=== PATIENT | male | born 2000 | race Caucasian/White ===

== ENCOUNTER 2024-05-20 09:32 | Outpatient (AMB) | payer OTHER, SELFPAY ==
--- NOTE | 2024-05-20 10:01 | A.OFFVIS_ITS ---
Intake Visit Reasons: balanitis Intake Note: New patient is present for balanitis Ongoing for 8 months Pain And Swelling Treated at [facility] but persistent despite 2x Fluconazole and Topicals Treated with Clotrimazole, Cortisone, Family History of Prostate Cancer, patient's Grandfather Uptwist Spinner Required: No Accompanied by: Self / Same As Patient Allergies No Known Allergies Allergy (Verified 05/20/24 10:13) HPI Comments Details: Rodrigo is a pleasant male. He is a patient of . He is seen for the following urologic conditions - balanitis/urethritis Balanitis/urethritis Had fungal exposure through sexual partner proximally 8 months ago Treated with topical clotrimazole which failed to clear Has had recurrence centered around the urethral meatal tip Was given short course of fluconazole which appeared to be beneficial Rodrigo showed me a number photos of the recurrence On examination today penile glans has keratinized squamous epithelium. This is atypical for a glans that would normally be covered by a foreskin. Recommendation to use neutral moisturizer twice a day Will try 2 week course of fluconazole 150 mg daily 6 week follow-up tele [facility] Medical History (Updated 05/20/24 @ 10:44 by Ren Lopez MD) Balanitis Family History Paternal Grandfather Prostate cancer Review of Systems Const Denies chills and Denies fever(s) Card Reports no additional complaints and Denies syncope Resp Denies cough GI Denies abdominal pain and Denies heartburn Reports as per HPI and Denies change in libido Neuro Denies syncope Psych Denies change in libido Endo Denies change in libido Physical Exam Const General: cooperative, healthy appearing, comfortable and no acute distress Orientation/consciousness: patient oriented x3 HEENT Face and sinus: Yes normal facial exam Mouth: moist mucous membranes Neck Neck: Yes normal visual inspection, Yes full ROM and Yes trachea midline Chest Chest palpation & inspection: normal inspection of the chest Resp Effort & Inspection: normal respiratory effort, able to speak in complete sentences and no respiratory distress GI Inspection: Yes normal to inspection Back/Spine/Pelvis Cervical Spine: normal cervical lordosis Thoracic/Lumbar Spine: thoracic and lumbar spine normal to inspection Skin General skin exam: no rashes or lesions noted Neuro General: patient oriented x3, gait normal, tone normal and moves all extremities Extrem General: Yes normal to inspection and Yes capillary refill normal Assessment & Plan Assessment & Plan (1) Urethritis, nongonococcal: Code(s): N34.1 - Nonspecific urethritis Category: Medical (2) Balanitis: Code(s): N48.1 - Balanitis Category: Medical Plan Trial fluconazole 150 mg daily 14 days Six week follow-up Medications: New fluconazole 150 mg PO DAILY 14 tabs 0RF 14 days B49 - Unspecified mycosis, N34.1 - Nonspecific urethritis Patient Instructions: Imaging studies, laboratory and physical exam results were discussed and reviewed in detail. No major barriers to patient understanding were identified. An opportunity to ask questions regarding the treatment plan was provided. All questions were answered. The patient expressed understanding and agreement with the above treatment plan. The patient is aware they should contact our office by phone for worsening of their current condition or the appearance of new urologic symptoms. Compliance is encouraged with any medications and followup testing that is ordered. It is a privilege to participate in the urologic care of your patient. If you have any questions or concerns regarding treatment for the above conditions, or other urologic issues, please do not hesitate to contact me. The office telephone contact is [phone]. This note is constructed using voice recognition software. While every effort has been made to ensure accuracy specialty manufacturing supervisor errors may have been included. Yours sincerely, Dr Ren Lopez MD, [facility] - Urology Providers of Expert, Compassionate Care for the Genitourinary System Coding Level of Care Code New Pt Level 4 (78970) Diagnoses Urethritis, nongonococcal N34.1 Balanitis N48.1
== END 2024-05-20 10:49 | disposition home or self-care (01) ==
PROVIDERS: PCP Internal Medicine; Visit Provider Urology
DX: N34.1 Nonspecific urethritis (principal); N48.1 Balanitis
CPT/HCPCS: 99204

== ENCOUNTER → 2024-05-20 09:32 | Outpatient (BNVA) | payer OTHER, SELFPAY | PROVIDERS: PCP Internal Medicine; Visit Provider Urology ==

== ENCOUNTER 2024-07-02 11:29 | Outpatient (AMB) | payer OTHER, SELFPAY ==
--- NOTE | 2024-07-02 11:32 | MHC.OFFVIS ---
Intake Visit Reasons: 6 week follow up Intake Note: Patient is present for 6W F/U Urology Medication:NONE Antibiotic Allergy:NONE Blood Thinner:NONE Rug Backing Stenciler Required: No Allergies No Known Allergies Allergy (Verified 07/02/24 11:32) HPI Comments Details: Rodrigo is a pleasant male. He is a patient of . He is seen for the following urologic conditions - balanitis/urethritis Telemedicine Evaluation 15 min Consultation [employer] Marginal benefit from 2 weeks of fluconazole Saw a enamel cracker who suggested may have been bacterial because fungus should have improved with 2 weeks ketoconazole Recommendation Microgen prostate testing Does have some components that are suggestive of emerging chronic pelvic pain syndrome Balanitis/urethritis Had fungal exposure through sexual partner proximally 8 months ago Treated with topical clotrimazole which failed to clear Has had recurrence centered around the urethral meatal tip Was given short course of fluconazole which appeared to be beneficial Rodrigo showed me a number photos of the recurrence On examination today penile glans has keratinized squamous epithelium. This is atypical for a glans that would normally be covered by a foreskin. Recommendation to use neutral moisturizer twice a day [facility] Medical History (Updated 05/20/24 @ 10:44 by Ren Lopez MD) Balanitis Family History Paternal Grandfather Prostate cancer Review of Systems Const All systems reviewed & are unremarkable except as noted in HPI and below Reports no additional complaints Resp Reports no additional complaints GI Reports no additional complaints Reports as per HPI Musc Reports no additional complaints Physical Exam Telemedicine evaluation Appropriate responses Regular breathing rate and rhythm HEENT Head: Yes normal to inspection Ears: hearing grossly normal bilaterally Eyes General: appearance normal, both eyes and all related structures Neck Neck: Yes normal visual inspection Chest Chest palpation & inspection: normal inspection of the chest Resp Effort & Inspection: normal respiratory effort and able to speak in complete sentences Telehealth Telehealth Location of provider rendering services: practice address Location of patient: address on file Patient Identification confirmed using: Name, : Yes Telehealth method: voice only Patient verbally consented to treatment: Yes Patient verbally consented to billing insurance company: Yes Patient informed of any privacy concerns related to visit: Yes Assessment & Plan Assessment & Plan (1) Urethritis, nongonococcal: Code(s): N34.1 - Nonspecific urethritis Category: Medical (2) Balanitis: Code(s): N48.1 - Balanitis Category: Medical Plan Plan Microgen prostate Symptomatic urinary tract infection presentations to a urologic clinic practice are overwhelmingly higher risk and more complicated genitourinary cases. Multiplex nucleic acid amplification using next generation rapid sequence polymerase chain reaction (PCR) has high sensitivity and diagnostic accuracy. It allows the ability to detect polymicrobial infections, isolate fastidious organisms, and detect Yomi resistance patterns. This allows greater antibiotic stewardship. Using PCR based technology is medically necessary in cases of nondiagnostic, persistent symptoms of urinary tract infection despite therapy. It is applicable in settings of complex urologic surgery, complex structural genitourinary anatomy and patients with prior history of recurrent complicated UTIs. Patient Instructions: Imaging studies, laboratory and physical exam results were discussed and reviewed in detail. No major barriers to patient understanding were identified. An opportunity to ask questions regarding the treatment plan was provided. All questions were answered. The patient expressed understanding and agreement with the above treatment plan. The patient is aware they should contact our office by phone for worsening of their current condition or the appearance of new urologic symptoms. Compliance is encouraged with any medications and followup testing that is ordered. It is a privilege to participate in the urologic care of your patient. If you have any questions or concerns regarding treatment for the above conditions, or other urologic issues, please do not hesitate to contact me. The office telephone contact is [phone]. This note is constructed using voice recognition software. While every effort has been made to ensure accuracy welding machine operator arc errors may have been included. Yours sincerely, Dr Ren Lopez MD, [facility] - Urology Providers of Expert, Compassionate Care for the Genitourinary System Coding Level of Care Code Tele Est Pt Level 3 (04148) Diagnoses Urethritis, nongonococcal N34.1 Balanitis N48.1
== END 2024-07-02 12:39 | disposition home or self-care (01) ==
LOC: HO.HUSH 11:29
PROVIDERS: PCP Internal Medicine; Visit Provider Urology
DX: N34.1 Nonspecific urethritis (principal); N48.1 Balanitis
CPT/HCPCS: 99213

== ENCOUNTER 2024-07-16 10:05 | Outpatient (AMB) | payer OTHER, SELFPAY ==
--- NOTE | 2024-07-16 10:54 | A.OFFVIS_ITS ---
Intake Visit Reasons: prostatic massage/ microgen Intake Note: Patient is present for PROSTATIC MASSAGE/MICROGEN Urology Medication:NONE Antibiotic Allergy:NONE Blood Thinner:NONE Rotary Lithographic Press Operator Required: No Allergies No Known Allergies Allergy (Verified 07/16/24 10:57) HPI Comments Details: Rodrigo is a pleasant male. He is a patient of . He is seen for the following urologic conditions - balanitis/urethritis Persistent symptoms with component prostatitis Here for Microgen completion Prostatic massage performed and fluid obtained Seven day follow-up tele for prostate DNA analysis Does have some components that are suggestive of emerging chronic pelvic pain syndrome Balanitis/urethritis Had fungal exposure through sexual partner proximally 8 months ago Treated with topical clotrimazole which failed to clear Has had recurrence centered around the urethral meatal tip Was given short course of fluconazole which appeared to be beneficial Rodrigo showed me a number photos of the recurrence On examination today penile glans has keratinized squamous epithelium. This is atypical for a glans that would normally be covered by a foreskin. Recommendation to use neutral moisturizer twice a day [facility] Medical History (Updated 07/16/24 @ 17:23 by Ren Lopez MD) Balanitis Family History Paternal Grandfather Prostate cancer Review of Systems Const Denies chills and Denies fever(s) Card Reports no additional complaints and Denies syncope Resp Denies cough GI Denies abdominal pain and Denies heartburn Reports as per HPI and Denies change in libido Neuro Denies syncope Psych Denies change in libido Endo Denies change in libido Physical Exam Const General: cooperative, healthy appearing, comfortable and no acute distress Orientation/consciousness: patient oriented x3 HEENT Face and sinus: Yes normal facial exam Mouth: moist mucous membranes Neck Neck: Yes normal visual inspection, Yes full ROM and Yes trachea midline Chest Chest palpation & inspection: normal inspection of the chest Resp Effort & Inspection: normal respiratory effort, able to speak in complete sentences and no respiratory distress GI Inspection: Yes normal to inspection Rectal Exam - Male: Yes normal sphincter tone and Yes prostate normal Male General Exam: Yes normal external exam Penis: normal penis and circumcised Meatus: meatus normal Scrotum: scrotum normal Testes: Testes normal Back/Spine/Pelvis Cervical Spine: normal cervical lordosis Thoracic/Lumbar Spine: thoracic and lumbar spine normal to inspection Skin General skin exam: no rashes or lesions noted Neuro General: patient oriented x3, gait normal, tone normal and moves all extremities Extrem General: Yes normal to inspection and Yes capillary refill normal Assessment & Plan Assessment & Plan (1) Prostatitis: Code(s): N41.9 - Inflammatory disease of prostate, unspecified Category: Medical Plan Seven day follow-up tele Patient Instructions: Imaging studies, laboratory and physical exam results were discussed and reviewed in detail. No major barriers to patient understanding were identified. An opportunity to ask questions regarding the treatment plan was provided. All questions were answered. The patient expressed understanding and agreement with the above treatment plan. The patient is aware they should contact our office by phone for worsening of their current condition or the appearance of new urologic symptoms. Compliance is encouraged with any medications and followup testing that is ordered. It is a privilege to participate in the urologic care of your patient. If you have any questions or concerns regarding treatment for the above conditions, or other urologic issues, please do not hesitate to contact me. The office telephon e contact is [phone]. This note is constructed using voice recognition software. While every effort has been made to ensure accuracy composite bond technician errors may have been included. Yours sincerely, Dr Ren Lopez MD, [facility] - Urology Providers of Expert, Compassionate Care for the Genitourinary System Coding Level of Care Code Est Pt Level 3 (69348) Diagnoses Prostatitis N41.9
== END 2024-07-16 11:28 | disposition home or self-care (01) ==
PROVIDERS: PCP Internal Medicine; Visit Provider Urology
DX: N41.9 Inflammatory disease of prostate, unspecified (principal)
CPT/HCPCS: 99213

== ENCOUNTER → 2024-07-16 10:05 | Outpatient (BNVA) | payer OTHER, SELFPAY | PROVIDERS: PCP Internal Medicine; Visit Provider Urology ==

== ENCOUNTER 2024-07-24 09:09 | Outpatient (AMB) | payer OTHER, SELFPAY ==
--- NOTE | 2024-07-24 09:15 | MHC.OFFVIS ---
Intake Visit Reasons: 1W Follow Up(fluconazole Trial) Intake Note: Patient is present for 1W F/U Urology Medication:CLINDAMYCIN,DOXYCYCLINE,FLUCONAZOLE Antibiotic Allergy:NONE Blood Thinner:NONE Crime Laboratory Analyst Required: No Allergies No Known Allergies Allergy (Verified 07/24/24 09:16) HPI Comments Details: Rodrigo is a pleasant male. He is a patient of . He is seen for the following urologic conditions - balanitis/urethritis Telemedicine Evaluation 15 min Consultation [employer] Video Copy of Kike sent Discussed components Primarily ureaplasma Treat with combination antibiotics clindamycin and doxycycline Balanitis/urethritis Had fungal exposure through sexual partner proximally 8 months ago Treated with topical clotrimazole which failed to clear Has had recurrence centered around the urethral meatal tip Was given short course of fluconazole which appeared to be beneficial Rodrigo showed me a number photos of the recurrence On examination today penile glans has keratinized squamous epithelium. This is atypical for a glans that would normally be covered by a foreskin. Recommendation to use neutral moisturizer twice a day [facility] Medical History (Updated 07/16/24 @ 17:23 by Ren Lopez MD) Balanitis Family History Paternal Grandfather Prostate cancer Review of Systems Const All systems reviewed & are unremarkable except as noted in HPI and below Reports no additional complaints Resp Reports no additional complaints GI Reports no additional complaints Reports as per HPI Musc Reports no additional complaints Physical Exam Telemedicine evaluation Appropriate responses Regular breathing rate and rhythm HEENT Head: Yes normal to inspection Ears: hearing grossly normal bilaterally Eyes General: appearance normal, both eyes and all related structures Neck Neck: Yes normal visual inspection Chest Chest palpation & inspection: normal inspection of the chest Resp Effort & Inspection: normal respiratory effort and able to speak in complete sentences Telehealth Telehealth Telehealth Platform: [employer] Location of provider rendering services: practice address Location of patient: address on file Patient Identification confirmed using: Name, : Yes Telehealth method: video Patient verbally consented to treatment: Yes Patient verbally consented to billing insurance company: Yes Patient informed of any privacy concerns related to visit: Yes Minutes spent on Phone/Video with Pt.: 15 Assessment & Plan Assessment & Plan (1) Urethritis, nongonococcal: Code(s): N34.1 - Nonspecific urethritis Category: Medical (2) Prostatitis: Code(s): N41.9 - Inflammatory disease of prostate, unspecified Category: Medical Plan Treat with joint antibiotics Four week follow-up tele Patient Instructions: Imaging studies, laboratory and physical exam results were discussed and reviewed in detail. No major barriers to patient understanding were identified. An opportunity to ask questions regarding the treatment plan was provided. All questions were answered. The patient expressed understanding and agreement with the above treatment plan. The patient is aware they should contact our office by phone for worsening of their current condition or the appearance of new urologic symptoms. Compliance is encouraged with any medications and followup testing that is ordered. It is a privilege to participate in the urologic care of your patient. If you have any questions or concerns regarding treatment for the above conditions, or other urologic issues, please do not hesitate to contact me. The office telephone contact is [phone]. This note is constructed using voice recognition software. While every effort has been made to ensure accuracy vice president risk management errors may have been included. Yours sincerely, Dr Ren Lopez MD, [facility] - Urology Providers of Expert, Compassionate Care for the Genitourinary System Coding Level of Care Code Tele Est Pt Level 4 (64739) Diagnoses Urethritis, nongonococcal N34.1 Prostatitis N41.9
== END 2024-07-24 10:19 | disposition home or self-care (01) ==
LOC: HO.HUSH 09:09
PROVIDERS: PCP Internal Medicine; Visit Provider Urology
DX: N34.1 Nonspecific urethritis (principal); N41.9 Inflammatory disease of prostate, unspecified
CPT/HCPCS: 98004